=== PATIENT | male | born 1990 | race African-American/Black ===

== ENCOUNTER 2017-09-07 18:07 | Inpatient (IN) | payer OTHER ==
--- NOTE | 2017-09-07 18:32 | PDOC ---
History of Present Illness - General History Source: Patient Exam Limitations: No Limitations - History of Present Illness Initial Comments: 09/07/17 18:33 The patient is a 27 year old male who denies any significant past medical history who presents to the ED complaining of several days of urinary frequency and decreased appetite. The patient states he urinates approximately every hour and soon after drinking. He endorses recent weight gain approximately 5-7 months ago. He reports family history of diabetes in his aunt and grandfather. No fever or chills. No abdominal pain, vomiting, or diarrhea. No hematuria or dysuria. <Juanita Woods - Last Filed: 09/07/17 18:33> <Cee Ramesh - Last Filed: 09/09/17 09:43> - General Chief Complaint: Urinary Problem Stated Complaint: URINATING FREQUENTLY Time Seen by Provider: 09/07/17 18:25 Past History <Juanita Woods - Last Filed: 09/07/17 18:33> <Cee Ramesh - Last Filed: 09/09/17 09:43> - Past Medical History Allergies/Adverse Reactions: Allergies Allergy/AdvReac Type Severity Reaction Status Date / Time No Known Allergies Allergy Verified 09/07/17 18:16 Home Medications: Ambulatory Orders NK [No Known Home Medication] 09/07/17 Review of Systems - Review of Systems Able to Perform ROS?: Yes Comments:: 09/07/17 18:36 GENERAL/CONSTITUTIONAL: +Decreased appetite. No fever or chills. HEAD, EYES, EARS, NOSE AND THROAT: No change in vision. No ear pain or discharge. No sore throat. CARDIOVASCULAR: No chest pain or shortness of breath. RESPIRATORY: No cough, wheezing, or hemoptysis. GASTROINTESTINAL: No nausea, vomiting, diarrhea or constipation. GENITOURINARY: +Frequency of urination. +Dysuria or hematuria. MUSCULOSKELETAL: No joint or muscle swelling or pain. No neck or back pain. SKIN: No rash NEUROLOGIC: No headache, vertigo, loss of consciousness, or change in strength/ sensation. ENDOCRINE: No increased thirst. No abnormal weight change. HEMATOLOGIC/LYMPHATIC: No anemia, easy bleeding, or history of blood clots. ALLERGIC/IMMUNOLOGIC: No hives or skin allergy. <Juanita Woods - Last Filed: 09/07/17 18:33> *Physical Exam - Physical Exam Comments: GENERAL: Awake, alert, and fully oriented, in no acute distress. Morbidly obese. HEAD: No signs of trauma EYES: PERRLA, EOMI, sclera anicteric, conjunctiva clear ENT: Auricles normal inspection, hearing grossly normal, nares patent, oropharynx clear without exudates. Moist mucosa NECK: Normal ROM, supple, no lymphadenopathy, JVD, or masses LUNGS: Breath sounds equal, clear to auscultation bilaterally. No wheezes, and no crackles HEART: Regular rate and rhythm, normal S1 and S2, no murmurs, rubs or gallops ABDOMEN: Soft, nontender, normoactive bowel sounds. No guarding, no rebound. No masses EXTREMITIES: Normal range of motion, no edema. No clubbing or cyanosis. No cords, erythema, or tenderness NEUROLOGICAL: Cranial nerves II through XII grossly intact. Normal speech, normal gait SKIN: Warm, Dry, normal turgor, no rashes or lesions noted. <Cee Ramesh - Last Filed: 09/09/17 09:43> ED Treatment Course - LABORATORY CBC & Chemistry Diagram: 09/08/17 06:15 09/09/17 07:20 <Cee Ramesh - Last Filed: 09/09/17 09:43> Medical Decision Making - Medical Decision Making 09/07/17 18:37 BGM is over range. Will obtain labs to further evaluate for new onset diabetes. 09/07/17 19:[address] Hassan at 7pm shift change. Pt recently evaluated, labs pending, written for IV fluids. <Cee Ramesh - Last Filed: 09/09/17 09:43> *DC/Admit/Observation/Transfer - Attestations Scribe Attestion: 09/07/17 18:37 Documentation prepared by Juanita Woods, acting as medical equipment repairer for Cee Ramesh MD. <Juanita Woods - Last Filed: 09/07/17 18:33> <Cee Ramesh - Last Filed: 09/09/17 09:43> Diagnosis at time of Disposition: Diabetes mellitus, new onset, Hyperglycemia - Discharge Dispostion Condition at time of disposition: Good
[2017-09-07] MEDS ORDERED: HEMOQUE TEST 1 EACH EACH ONE ×2 (18:33→20:51)
[2017-09-07 18:35] LABS: PH,URINE 5.5 (4.5-8); URINE APPEARANCE Clear; URINE BILIRUBIN Negative (NEGATIVE); URINE GLUCOSE (UA) 2+ (NEGATIVE); URINE KETONE Negative (NEGATIVE); URINE NITRITE Negative (NEGATIVE); URINE PROTEIN Negative (NEGATIVE); URINE UROBILINOGEN 0.2 (0.2-1.0)
[2017-09-07 18:37] LABS: URINE BLOOD Trace-lysed (NEGATIVE); URINE COLOR YELLOW
[2017-09-07] MEDS ORDERED: SODIUM CHLORIDE 2,000 ML IV STA (18:38)
[2017-09-07 19:08] LABS: BASO % 2.2 % (0-2.0); EOS % 1.6 % (0-4.5); HEMATOCRIT 49.2 % (35.4-49); HEMOGLOBIN 16.5 GM/dl (11.7-16.9); LYMPH % 35.4 % (8-40); MCH 29.6 pg (25.7-33.7); MCHC 33.6 g/dl (32.0-35.9); MEAN CELL VOLUME 88.1 fl (80-96); MEAN PLT VOLUME 10.1 fl (7.5-11.1); MONO % 6.9 % (3.8-10.2); NEUT % 53.9 % (42.8-82.8); PLATELET COUNT 220 K/MM3 (134-434); RBC 5.59 M/mm3 (4.00-5.60); RDW 12.8 % (11.9-15.9); WHITE BLOOD COUNT 5.9 K/mm3 (4.0-10.8)
--- NOTE | 2017-09-07 19:14 | PDOC ---
History of Present Illness - General Chief Complaint: Urinary Problem Stated Complaint: URINATING FREQUENTLY Time Seen by Provider: 09/07/17 18:25 History Source: Patient Exam Limitations: No Limitations Past History - Past Medical History Allergies/Adverse Reactions: Allergies Allergy/AdvReac Type Severity Reaction Status Date / Time No Known Allergies Allergy Verified 09/07/17 18:16 Home Medications: Ambulatory Orders NK [No Known Home Medication] 09/07/17 COPD: No - Suicide/Smoking/Psychosocial Hx Smoking History: Never smoked Hx Alcohol Use: Yes (OCCASIONAL) Drug/Substance Use Hx: No Substance Use Type: None *Physical Exam - Vital Signs Last Vital Signs Temp Pulse Resp BP Pulse Ox 98.3 F 84 18 150/95 95 09/07/17 18:12 09/07/17 18:12 09/07/17 18:12 09/07/17 18:12 09/07/17 18:12 ED Treatment Course - LABORATORY CBC & Chemistry Diagram: 09/07/17 18:55 09/07/17 18:55 - ADDITIONAL ORDERS Additional order review: Laboratory Results 09/07/17 18:30 Urine Color Yellow Urine Appearance Clear Urine pH 5.5 Ur Specific [place] <= 1.005 Urine Protein Negative Urine Glucose (UA) 2+ H Urine Ketones Negative Urine Blood Trace-lysed H Urine Nitrite Negative Urine Bilirubin Negative Urine Urobilinogen 0.2 Ur Leukocyte Esterase Negative 09/07/17 18:55 RBC 5.59 MCV 88.1 MCHC 33.6 RDW 12.8 MPV 10.1 Neutrophils % 53.9 Lymphocytes % 35.4 Monocytes % 6.9 Eosinophils % 1.6 Basophils % 2.2 H *DC/Admit/Observation/Transfer Diagnosis at time of Disposition: Diabetes mellitus, new onset - Discharge Dispostion Condition at time of disposition: Good - Referrals - Patient Instructions - Post Discharge Activity
--- NOTE | 2017-09-07 19:16 | PDOC ---
*Physical Exam - Vital Signs Last Vital Signs Temp Pulse Resp BP Pulse Ox 98.3 F 84 18 150/95 95 09/07/17 18:12 09/07/17 18:12 09/07/17 18:12 09/07/17 18:12 09/07/17 18:12 ED Treatment Course - LABORATORY CBC & Chemistry Diagram: 09/07/17 18:55 09/07/17 21:05 - ADDITIONAL ORDERS Additional order review: Laboratory Results 09/07/17 18:30 Urine Color Yellow Urine Appearance Clear Urine pH 5.5 Ur Specific [place] <= 1.005 Urine Protein Negative Urine Glucose (UA) 2+ H Urine Ketones Negative Urine Blood Trace-lysed H Urine Nitrite Negative Urine Bilirubin Negative Urine Urobilinogen 0.2 Ur Leukocyte Esterase Negative 09/07/17 18:55 RBC 5.59 MCV 88.1 MCHC 33.6 RDW 12.8 MPV 10.1 Neutrophils % 53.9 Lymphocytes % 35.4 Monocytes % 6.9 Eosinophils % 1.6 Basophils % 2.2 H Progress Note - Progress Note Progress Note: Care of this patient was transferred to mi from Dr. Ramesh at 1900 hrs. Patient comes in complaining of urinary frequency but no other complaints of dysuria or hematuria. Patient was also complaining of feeling thirsty, weak and not well. Patient's workup is pending suspect new onset diabetes as his fingerstick blood sugar read high on the glucometer. 20:00 Patient's glucose is 706 his potassium is 4.4 so will begin IV insulin. Patient given 0.1 unit regular insulin per KG bolus and then drip started at 0.1 per KG per hour. There is no anion gap and the rest of his chemistries are unremarkable with the exception of his liver enzymes which are mildly to moderately elevated. Patient's potassium is 125 but when corrected for the elevated glucose it is not within the normal range. Patient will be admitted to a telemetry bed *DC/Admit/Observation/Transfer Diagnosis at time of Disposition: Diabetes mellitus, new onset, Hyperglycemia - Discharge Dispostion Condition at time of disposition: Good Admit: Yes - Referrals - Patient Instructions - Post Discharge Activity
[2017-09-07 19:30] LABS: EPI CELLS 0-1 /HPF; URINE WBC 0-1 (0-2)
[2017-09-07 19:32] LABS: ACETONE SERUM NEGATIVE (NEGATIVE)
[2017-09-07 19:38] LABS: BLOOD UREA NITROGEN 11 mg/dl (7-18)
[2017-09-07 19:43] LABS: CHLORIDE 90 mmol/L (98-107); POTASSIUM 4.4 mmol/L (3.5-5.1); SODIUM 125 mmol/L (136-145)
[2017-09-07 19:44] LABS: ALBUMIN 4.2 g/dl (3.5-5.0); ALK PHOS 102 U/L (32-92); ANION GAP 11 (8-16); BILIRUBIN,TOTAL 1.1 mg/dl (0.2-1.0); CALCIUM 9.5 mg/dl (8.4-10.2); CO2 24 mmol/L (22-28); LIPASE 43 U/L (22-51); SGOT/AST 131 U/L (10-42); SGPT/ALT 153 U/L (10-40); TOT PROT 7.7 g/dl (6.4-8.3)
[2017-09-07 19:47] LABS: GLUCOSE,RANDOM 706 mg/dl (74-106)
[2017-09-07] MEDS ORDERED: INSULIN REGULAR HUMAN 100 UNITS/ML *VIAL IVPUSH ONE (19:53)
[2017-09-07] MEDS ORDERED: INSULIN (NOVOLOG) ASPART 100 UNITS/ML 10ML VIAL ONE (19:55)
[2017-09-07] MEDS ORDERED: INSULIN REGULAR HUMAN 100 UNITS/ML *VIAL ONE (19:55)
[2017-09-07] MEDS ORDERED: INSULIN REGULAR 100 UNITS in SODIUM CHLORIDE 99 ML IVPB SCH (20:00)
[2017-09-07 21:32] LABS: BLOOD UREA NITROGEN 10 mg/dl (7-18); CREATININE 0.9 mg/dl (0.6-1.3); GLUCOSE,RANDOM 374 mg/dl (74-106)
[2017-09-07 21:33] LABS: ANION GAP 9 (8-16); CALCIUM 9.1 mg/dl (8.4-10.2); CHLORIDE 101 mmol/L (98-107); CO2 22 mmol/L (22-28); POTASSIUM 3.6 mmol/L (3.5-5.1); SODIUM 132 mmol/L (136-145)
[2017-09-07 22:42] VITALS: BMI 44.0
[2017-09-07] MEDS: SODIUM CHLORIDE 0.9%/KCL 20 MEQ/1,000 ML INFUS.BAG IV SCH (22:44)
[2017-09-07] MEDS ORDERED: POTASSIUM CHLORIDE TABS 20 MEQ TABLET.ER (FP) PO ONE (22:48)
--- NOTE | 2017-09-07 22:49 | HP ---
CHIEF COMPLAINT: urinary frequency PCP: none HISTORY OF PRESENT ILLNESS: This is a 27 year old male with no past medical history who presented with urinary frequency and decreased appetite x 2 weeks. He states that his grandmother periodically checks his sugar and it has been fine but she has not checked it during this illness. In the ED he was noted to have elevated sugar on meter; labs revealed glucose 706. Pt reports slow steady weight loss over past 11 months, weighed 376 last October ER course was notable for: (1) Glucose 706, given 16u novolog and started on drip (2) Potasium initially 4.4 (3) Sodium 125, corrects to 135 to 140 Recent Travel: pt denies PAST MEDICAL HISTORY: pt denies PAST SURGICAL HISTORY: pt denies Social History: Smoking: pt denies Alcohol: pt denies Drugs: pt denies Family History: Parents with no medical problems Maternal GM and GF with DM brother with renal disease dx at age 6, s/p kidney transplant x 2 Allergies No Known Allergies Allergy (Verified 09/07/17 18:16) HOME MEDICATIONS: 3 Medication Instructions Recorded NK [No Known Home Medication] 09/07/17 REVIEW OF SYSTEMS CONSTITUTIONAL: Absent: fever, chills, diaphoresis, generalized weakness, malaise, loss of appetite, weight change HEENT: Absent: rhinorrhea, nasal congestion, throat pain, throat swelling, difficulty swallowing, mouth swelling, ear pain, eye pain, visual changes CARDIOVASCULAR: Absent: chest pain, syncope, palpitations, irregular heart rate, lightheadedness , peripheral edema RESPIRATORY: Absent: cough, shortness of breath, dyspnea with exertion, orthopnea, wheezing, stridor, hemoptysis GASTROINTESTINAL: Present: Decreased po appetite Absent: abdominal pain, abdominal distension, nausea, vomiting, diarrhea, constipation, melena, hematochezia GENITOURINARY: Present: frequency Absent: dysuria, urgency, hesitancy, hematuria, flank pain, genital pain MUSCULOSKELETAL: Absent: myalgia, arthralgia, joint swelling, back pain, neck pain SKIN: Absent: rash, itching, pallor HEMATOLOGIC/IMMUNOLOGIC: Absent: easy bleeding, easy bruising, lymphadenopathy, frequent infections ENDOCRINE: Absent: unexplained weight gain, unexplained weight loss, heat intolerance, cold intolerance NEUROLOGIC: Absent: headache, focal weakness or paresthesias, dizziness, unsteady gait, seizure, mental status changes, bladder or bowel incontinence PSYCHIATRIC: Absent: anxiety, depression, suicidal or homicidal ideation, hallucinations. PHYSICAL EXAMINATION Vital Signs - 24 hr 3 09/07/17 09/07/17 18:12 21:00 Temperature 98.3 F Pulse Rate 84 Pulse Rate [ 82 Right Radial] Respiratory 18 18 Rate Blood Pressure 150/95 Blood Pressure 131/61 [Right Arm] O2 Sat by Pulse 95 96 Oximetry (%) GENERAL: Awake, alert, and fully oriented, in no acute distress. HEAD: Normal with no signs of trauma. EYES: Pupils equal, round and reactive to light, extraocular movements intact, sclera anicteric, conjunctiva clear. No lid lag. EARS, NOSE, THROAT: Ears normal, nares patent, oropharynx clear without exudates. Moist mucous membranes. NECK: Normal range of motion, supple without lymphadenopathy, JVD, or masses. LUNGS: Breath sounds equal, clear to auscultation bilaterally. No wheezes, and no crackles. No accessory muscle use. HEART: Regular rate and rhythm, normal S1 and S2 without murmur, rub or gallop. ABDOMEN: Obese, Soft, nontender, not distended, normoactive bowel sounds, no guarding, no rebound, no masses. No hepatomegaly or splenomegaly. MUSCULOSKELETAL: Normal range of motion at all joints. No bony deformities or tenderness. No CVA tenderness. UPPER EXTREMITIES: 2+ pulses, warm, well-perfused. No cyanosis. No clubbing. No peripheral edema. LOWER EXTREMITIES: 2+ pulses, warm, well-perfused. No calf tenderness. No peripheral edema. NEUROLOGICAL: Cranial nerves II-XII intact. Normal speech. Normal gait. PSYCHIATRIC: Cooperative. Good eye contact. Appropriate mood and affect. SKIN: Warm, dry, normal turgor, no rashes or lesions noted, normal capillary refill. Laboratory Results - last 24 hr 3 09/07/17 09/07/17 09/07/17 18:30 18:55 18:55 WBC 5.9 RBC 5.59 Hgb 16.5 Hct 49.2 H MCV 88.1 MCH 29.6 MCHC 33.6 RDW 12.8 Plt Count 220 MPV 10.1 Neutrophils % 53.9 Lymphocytes % 35.4 Monocytes % 6.9 Eosinophils % 1.6 Basophils % 2.2 H Sodium 125 L Potassium 4.4 Chloride 90 L Carbon Dioxide 24 Anion Gap 11 BUN 11 Creatinine 1.0 Creat Clearance w eGFR > 60 Random Glucose 706 H* Lactic Acid Calcium 9.5 Total Bilirubin 1.1 H AST 131 H ALT 153 H Alkaline Phosphatase 102 H Total Protein 7.7 Albumin 4.2 Lipase 43 Urine Color Yellow Urine Appearance Clear Urine pH 5.5 Ur Specific [place] <= 1.005 Urine Protein Negative Urine Glucose (UA) 2+ H Urine Ketones Negative Urine Blood Trace-lysed H Urine Nitrite Negative Urine Bilirubin Negative Urine Urobilinogen 0.2 Ur Leukocyte Esterase Negative Urine RBC 3-5 Urine WBC 0-1 Ur Epithelial Cells 0-1 Acetone, Qual Negative HIV 1&2 Antibody Screen HIV P24 Antigen 3 09/07/17 09/07/17 09/07/17 18:55 19:04 21:05 WBC RBC Hgb Hct MCV MCH MCHC RDW Plt Count MPV Neutrophils % Lymphocytes % Monocytes % Eosinophils % Basophils % Sodium 132 L Potassium 3.6 Chloride 101 D Carbon Dioxide 22 Anion Gap 9 BUN 10 Creatinine 0.9 Creat Clearance w eGFR Random Glucose 374 H* D Lactic Acid 1.7 Calcium 9.1 Total Bilirubin AST ALT Alkaline Phosphatase Total Protein Albumin Lipase Urine Color Urine Appearance Urine pH Ur Specific [place] Urine Protein Urine Glucose (UA) Urine Ketones Urine Blood Urine Nitrite Urine Bilirubin Urine Urobilinogen Ur Leukocyte Esterase Urine RBC Urine WBC Ur Epithelial Cells Acetone, Qual HIV 1&2 Antibody Screen Negative HIV P24 Antigen Negative ASSESSMENT/PLAN: 27yM with no PMH presented to the ED with urinary frequency, decreased appetite and generalized malaise. New onset DM - was given insulin drip in ED. ED discontinued when BGM less than 400. - start long acting insulin, levemir 28units HS; - BGM AC/HS with novolog sliding scale - A1C in am - endocrine consult DVT PPX - low risk, expected LOS <48h Dispo: Pt currently requires further observation for management of his emergent condition. Visit type - Emergency Visit Emergency Visit: Yes ED Registration Date: 09/07/17 Care time: The patient presented to the Emergency Department on the above date and was hospitalized for further evaluation of their emergent condition. - New Patient This patient is new to me today: Yes Date on this admission: 09/07/17 - Critical Care Critical Care patient: No
[2017-09-07] MEDS ORDERED: INSULIN DETEMIR 100 UNITS/ML MDV SQ ONE (23:00)
[2017-09-07] MEDS ORDERED: INSULIN (NOVOLOG) ASPART 100 UNITS/ML 10ML VIAL SQ ONE (23:30)
[2017-09-08 01:38] LABS: ANION GAP 13 (8-16); BLOOD UREA NITROGEN 9 mg/dL (7-18); CALCIUM 8.4 mg/dL (8.5-10.1); CHLORIDE 100 mmol/L (98-107); CO2 24 mmol/L (21-32); CREATININE 0.9 mg/dL (0.7-1.3); SODIUM 137 mmol/L (136-145)
[2017-09-08 01:39] LABS: POTASSIUM 4.2 mmol/L (3.5-5.1)
[2017-09-08 01:40] LABS: GLUCOSE,RANDOM 368 mg/dL (74-106)
[2017-09-08] MEDS ORDERED: IBUPROFEN 600 MG TABLET (FP) PO ONE (01:46)
[2017-09-08] MEDS: INSULIN SLIDING SCALE (NOVOLOG) 1 VIAL SQ SCH ×4 (07:15→22:48)
[2017-09-08 09:07] LABS: BASO % 0.3 % (0-2.0); EOS % 1.2 % (0-4.5); HEMATOCRIT 35.9 % (35.4-49); HEMOGLOBIN 11.9 GM/dl (11.7-16.9); LYMPH % 25.2 % (8-40); MCH 28.5 pg (25.7-33.7); MEAN CELL VOLUME 86.2 fl (80-96); MEAN PLT VOLUME 9.8 fl (7.5-11.1); MONO % 6.1 % (3.8-10.2); NEUT % 67.2 % (42.8-82.8); PLATELET COUNT 154 K/MM3 (134-434); RBC 4.17 M/mm3 (4.00-5.60); RDW 12.5 % (11.9-15.9); WHITE BLOOD COUNT 6.6 K/mm3 (4.0-10.8)
--- NOTE | 2017-09-08 09:39 | PN ---
Physical Exam: SUBJECTIVE: Patient seen and examined at bedside. Feels better than yesterday, not urinating as frequently and not as weak. OBJECTIVE: Vital Signs Period Temp Pulse Resp BP Sys/Chase Pulse Ox Last 24 Hr 98.1 F-98.3 F 71-84 18-19 131-152/61-95 95-97 GENERAL: The patient is awake, alert, and fully oriented, in no acute distress. LUNGS: Breath sounds equal, clear to auscultation bilaterally, no wheezes, no crackles, no accessory muscle use. HEART: Regular rate and rhythm, S1, S2 without murmur, rub or gallop. ABDOMEN: Soft, obese, nontender, nondistended EXTREMITIES: 2+ pulses, warm, well-perfused, no edema. NEUROLOGICAL: Cranial nerves II through XII grossly intact. Normal speech, moves all extremities freely SKIN: Warm, dry, normal turgor Laboratory Results - last 24 hr 09/07/17 09/07/17 09/07/17 18:30 18:55 18:55 WBC 5.9 RBC 5.59 Hgb 16.5 Hct 49.2 H MCV 88.1 MCH 29.6 MCHC 33.6 RDW 12.8 Plt Count 220 MPV 10.1 Neutrophils % 53.9 Lymphocytes % 35.4 Monocytes % 6.9 Eosinophils % 1.6 Basophils % 2.2 H Sodium 125 L Potassium 4.4 Chloride 90 L Carbon Dioxide 24 Anion Gap 11 BUN 11 Creatinine 1.0 Creat Clearance w eGFR > 60 POC Glucometer Random Glucose 706 H* Lactic Acid Calcium 9.5 Total Bilirubin 1.1 H AST 131 H ALT 153 H Alkaline Phosphatase 102 H Total Protein 7.7 Albumin 4.2 Lipase 43 Urine Color Yellow Urine Appearance Clear Urine pH 5.5 Ur Specific [place] <= 1.005 Urine Protein Negative Urine Glucose (UA) 2+ H Urine Ketones Negative Urine Blood Trace-lysed H Urine Nitrite Negative Urine Bilirubin Negative Urine Urobilinogen 0.2 Ur Leukocyte Esterase Negative Urine RBC 3-5 Urine WBC 0-1 Ur Epithelial Cells 0-1 Acetone, Qual Negative HIV 1&2 Antibody Screen HIV P24 Antigen 09/07/17 09/07/17 09/07/17 18:55 19:04 21:05 WBC RBC Hgb Hct MCV MCH MCHC RDW Plt Count MPV Neutrophils % Lymphocytes % Monocytes % Eosinophils % Basophils % Sodium 132 L Potassium 3.6 Chloride 101 D Carbon Dioxide 22 Anion Gap 9 BUN 10 Creatinine 0.9 Creat Clearance w eGFR POC Glucometer Random Glucose 374 H* D Lactic Acid 1.7 Calcium 9.1 Total Bilirubin AST ALT Alkaline Phosphatase Total Protein Albumin Lipase Urine Color Urine Appearance Urine pH Ur Specific [place] Urine Protein Urine Glucose (UA) Urine Ketones Urine Blood Urine Nitrite Urine Bilirubin Urine Urobilinogen Ur Leukocyte Esterase Urine RBC Urine WBC Ur Epithelial Cells Acetone, Qual HIV 1&2 Antibody Screen Negative HIV P24 Antigen Negative 09/07/17 09/08/17 09/08/17 23:01 00:01 06:15 WBC 6.6 RBC 4.17 D Hgb 11.9 D Hct 35.9 D MCV 86.2 MCH 28.5 MCHC 33.0 RDW 12.5 Plt Count 154 D MPV 9.8 Neutrophils % 67.2 D Lymphocytes % 25.2 D Monocytes % 6.1 Eosinophils % 1.2 Basophils % 0.3 Sodium 137 Potassium 4.2 Chloride 100 Carbon Dioxide 24 Anion Gap 13 BUN 9 Creatinine 0.9 Creat Clearance w eGFR POC Glucometer 318 Random Glucose 368 H* Lactic Acid Calcium 8.4 L Total Bilirubin AST ALT Alkaline Phosphatase Total Protein Albumin Lipase Urine Color Urine Appearance Urine pH Ur Specific [place] Urine Protein Urine Glucose (UA) Urine Ketones Urine Blood Urine Nitrite Urine Bilirubin Urine Urobilinogen Ur Leukocyte Esterase Urine RBC Urine WBC Ur Epithelial Cells Acetone, Qual HIV 1&2 Antibody Screen HIV P24 Antigen 09/08/17 07:09 WBC RBC Hgb Hct MCV MCH MCHC RDW Plt Count MPV Neutrophils % Lymphocytes % Monocytes % Eosinophils % Basophils % Sodium Potassium Chloride Carbon Dioxide Anion Gap BUN Creatinine Creat Clearance w eGFR POC Glucometer 297 Random Glucose Lactic Acid Calcium Total Bilirubin AST ALT Alkaline Phosphatase Total Protein Albumin Lipase Urine Color Urine Appearance Urine pH Ur Specific [place] Urine Protein Urine Glucose (UA) Urine Ketones Urine Blood Urine Nitrite Urine Bilirubin Urine Urobilinogen Ur Leukocyte Esterase Urine RBC Urine WBC Ur Epithelial Cells Acetone, Qual HIV 1&2 Antibody Screen HIV P24 Antigen Active Medications Generic Name Dose Route Start Last Admin Trade Name Freq PRN Reason Stop Dose Admin Potassium Chloride/Sodium Chloride 20 meq in 1,000 mls @ 125 mls/hr 09/07/17 22:00 09/07/17 22:44 Ns+20 Meq Kcl - IV 125 mls/hr ASDIR SHERRY Administration Insulin Aspart 1 vial 09/08/17 22:00 Novolog Vial Sliding Scale - SQ HS [facility] Protocol Insulin Aspart 1 vial 09/08/17 07:00 09/08/17 07:15 Novolog Vial Sliding Scale - SQ 6 units TIDAC [facility] Administration Protocol Insulin Detemir 15 units 09/08/17 10:00 Levemir Vial SQ BID [facility] ASSESSMENT/PLAN: 27 year-old male with no past medical history admitted for newly diagnosed diabetes. Diabetes mellitus Hyperosmolar non-ketotic state --initial fingerstick 700, placed on insulin drip until glucose dropped below 400 --fingersticks today ~300, change Levemir to BID dosing --Novolog sliding scale coverage --A1C pending --endocrine consult pending DVT prophylaxis: subq heparin, oob, ambulation Dispo: Pt currently requires further observation for management of his emergent condition. Visit type - Emergency Visit Emergency Visit: Yes ED Registration Date: 09/07/17 Care time: The patient presented to the Emergency Department on the above date and was hospitalized for further evaluation of their emergent condition. - New Patient This patient is new to me today: Yes Date on this admission: 09/08/17 - Critical Care Critical Care patient: No
[2017-09-08 09:43] LABS: ALBUMIN 3.6 g/dl (3.5-5.0); ALK PHOS 85 U/L (32-92); ANION GAP 11 (8-16); BILIRUBIN,TOTAL 1.1 mg/dl (0.2-1.0); BLOOD UREA NITROGEN 9 mg/dl (7-18); CALCIUM 8.8 mg/dl (8.4-10.2); CHLORIDE 102 mmol/L (98-107); CO2 22 mmol/L (22-28); CREATININE 0.8 mg/dl (0.6-1.3); POTASSIUM 4.2 mmol/L (3.5-5.1); SGOT/AST 120 U/L (10-42); SGPT/ALT 132 U/L (10-40); SODIUM 135 mmol/L (136-145); TOT PROT 6.8 g/dl (6.4-8.3)
[2017-09-08 09:53] LABS: GLUCOSE,RANDOM 304 mg/dl (74-106)
[2017-09-08] MEDS: INSULIN DETEMIR 100 UNITS/ML MDV SQ SCH ×2 (09:54→22:48)
--- NOTE | 2017-09-08 13:20 | CONSULT ---
Consult Consult Specialty:: Endocrinology Referred by:: Mary Garcia Reason for Consultation:: New onset DM - History of Present Illness Chief Complaint: polyuria, polydipsia History of Present Illness: This is a 27 year old male with no significant past medical history who presents to the ED complaining of 2 weeks of urinary frequency and decreased appetite. The patient states he urinates approximately every hour and soon after drinking. Pt found to be hyperglycemic with blood sugar >700. Pt was treated with IV insulin with improvement in blood sugar and symptoms. Denies any visual symptoms. No paresthesia of feet. Blood checked by his grandmother about 6 months "normal" as per pt. Wt loss of around 10 lbs in last 2 weeks. He reports family history of diabetes in his aunt and grandfather. No fever or chills. No abdominal pain, vomiting, or diarrhea. No hematuria or dysuria. - History Source History Provided By: Patient, Medical Record - Alcohol/Substance Use Hx Alcohol Use: Yes (OCCASIONAL) - Smoking History Smoking history: Never smoked Home Medications - Allergies Allergies/Adverse Reactions: Allergies Allergy/AdvReac Type Severity Reaction Status Date / Time No Known Allergies Allergy Verified 09/07/17 18:16 - Home Medications Home Medications: Ambulatory Orders NK [No Known Home Medication] 09/07/17 Family Disease History - Family Disease History Family Disease History: Diabetes: Grandparent Review of Systems - Review of Systems Constitutional: reports: Malaise Eyes: reports: No Symptoms HENT: reports: No Symptoms Neck: reports: No Symptoms Cardiovascular: reports: No Symptoms Respiratory: reports: No Symptoms Gastrointestinal: reports: No Symptoms Genitourinary: reports: Other (Poyuria, Polydipsia, increased thirst) Breasts: reports: No Symptoms Reported Musculoskeletal: reports: No Symptoms Neurological: reports: No Symptoms Endocrine: reports: No Symptoms Physical Exam Vital Signs: Vital Signs Temperature 98.3 F 09/08/17 07:21 Pulse Rate 71 09/08/17 07:21 Respiratory Rate 19 09/08/17 07:21 Blood Pressure 146/79 09/08/17 07:21 O2 Sat by Pulse Oximetry (%) 97 09/08/17 07:21 Constitutional: Yes: Well Nourished Eyes: Yes: Conjunctiva Clear, EOM Intact HENT: Yes: Atraumatic, Normocephalic Neck: Yes: Supple, Trachea Midline Cardiovascular: Yes: Regular Rate and Rhythm Respiratory: Yes: Regular, CTA Bilaterally Gastrointestinal: Yes: Normal Bowel Sounds, Soft Breast(s): Yes: WNL Musculoskeletal: Yes: WNL Extremities: Yes: WNL Edema: No Neurological: Yes: Alert, Oriented Labs: CBC, BMP 09/08/17 06:15 09/08/17 06:15 Assessment/Plan AP; New onset DM with hyperglycemia Calculated [address] Osm 293 Diet exercise discussed, Diabetes education done Nutrition consult Levemir 15 units BID Novolog SS coverage PRINCESS Ab C peptide if possible as inpatient, if not as outpt. Teach pt to self monitor blood sugar and self inject Insulin Elevated LFTs: ? Fatty liver Consider GI consult Will add Metformin if the liver abnormality is fatty liver
[2017-09-08] MEDS: HEPARIN NA (PORCINE) 5,000 UNITS/ML 1ML VIAL SQ SCH ×2 (13:58→22:48)
[2017-09-08] MEDS: SODIUM CHLORIDE 0.9%/KCL 20 MEQ/1,000 ML INFUS.BAG IV SCH (22:48)
[2017-09-08] MEDS ORDERED: INSULIN (NOVOLOG) ASPART 100 UNITS/ML 10ML VIAL SQ ONE (23:02)
[2017-09-09] MEDS: INSULIN SLIDING SCALE (NOVOLOG) 1 VIAL SQ SCH ×4 (06:50→21:26)
[2017-09-09] MEDS: HEPARIN NA (PORCINE) 5,000 UNITS/ML 1ML VIAL SQ SCH ×3 (06:51→21:26)
--- NOTE | 2017-09-09 07:40 | PN ---
Physical Exam: SUBJECTIVE: Patient seen and examined, reports feeling well, denies any abdominal pain, tolerating diet. OBJECTIVE:27 year-old male with no past medical history admitted for newly diagnosed diabetes. Vital Signs Period Temp Pulse Resp BP Sys/Chase Pulse Ox Last 24 Hr 98 F-98.1 F 64-71 18-19 139-144/72-76 96-96 GENERAL: obese, awake, alert, and fully oriented, in no acute distress. HEAD: Normal with no signs of trauma. EYES: PERRL, extraocular movements intact, sclera anicteric, conjunctiva clear. No ptosis. ENT: Ears normal, nares patent, oropharynx clear without exudates, moist mucous membranes. NECK: Trachea midline, full range of motion, supple. LUNGS: Breath sounds equal, clear to auscultation bilaterally, no wheezes, no crackles, no accessory muscle use. HEART: Regular rate and rhythm, S1, S2 without murmur, rub or gallop. ABDOMEN: Soft, nontender, nondistended, normoactive bowel sounds, no guarding, no rebound, no hepatosplenomegaly, no masses. EXTREMITIES: 2+ pulses, warm, well-perfused, no edema. NEUROLOGICAL: Cranial nerves II through XII grossly intact. Normal speech, gait not observed. PSYCH: Normal mood, normal affect. SKIN: Warm, dry, normal turgor, no rashes or lesions noted Laboratory Results - last 24 hr 09/08/17 09/08/17 09/08/17 06:15 06:15 06:15 WBC 6.6 RBC 4.17 D Hgb 11.9 D Hct 35.9 D MCV 86.2 MCH 28.5 MCHC 33.0 RDW 12.5 Plt Count 154 D MPV 9.8 Neutrophils % 67.2 D Lymphocytes % 25.2 D Monocytes % 6.1 Eosinophils % 1.2 Basophils % 0.3 Sodium 135 L Potassium 4.2 Chloride 102 Carbon Dioxide 22 Anion Gap 11 BUN 9 Creatinine 0.8 Creat Clearance w eGFR > 60 POC Glucometer Random Glucose 304 H* Hemoglobin A1c % 11.2 H Calcium 8.8 Total Bilirubin 1.1 H AST 120 H ALT 132 H Alkaline Phosphatase 85 Total Protein 6.8 Albumin 3.6 09/08/17 09/08/17 09/08/17 11:11 16:25 22:44 WBC RBC Hgb Hct MCV MCH MCHC RDW Plt Count MPV Neutrophils % Lymphocytes % Monocytes % Eosinophils % Basophils % Sodium Potassium Chloride Carbon Dioxide Anion Gap BUN Creatinine Creat Clearance w eGFR POC Glucometer 301 314 398 Random Glucose Hemoglobin A1c % Calcium Total Bilirubin AST ALT Alkaline Phosphatase Total Protein Albumin 09/09/17 06:12 WBC RBC Hgb Hct MCV MCH MCHC RDW Plt Count MPV Neutrophils % Lymphocytes % Monocytes % Eosinophils % Basophils % Sodium Potassium Chloride Carbon Dioxide Anion Gap BUN Creatinine Creat Clearance w eGFR POC Glucometer 307 Random Glucose Hemoglobin A1c % Calcium Total Bilirubin AST ALT Alkaline Phosphatase Total Protein Albumin Laboratory Tests 09/09/17 07:20 Triglycerides 730 H Cholesterol 206 Total LDL Cholesterol 31 HDL Cholesterol 29 Active Medications Generic Name Dose Route Start Last Admin Trade Name Lucila PRN Reason Stop Dose Admin Heparin Sodium (Porcine) 5,000 unit 09/08/17 14:00 09/09/17 06:51 Heparin - SQ 5,000 unit TID SHERRY Administration Potassium Chloride/Sodium Chloride 20 meq in 1,000 mls @ 125 mls/hr 09/07/17 22:00 09/08/17 22:48 Ns+20 Meq Kcl - IV 125 mls/hr ASDIR SHERRY Administration Insulin Aspart 1 vial 09/08/17 22:00 09/08/17 22:48 Novolog Vial Sliding Scale - SQ 8 units HS SHERRY Administration Protocol Insulin Aspart 1 vial 09/08/17 16:30 09/09/17 06:50 Novolog Vial Sliding Scale - SQ 10 units TIDAC SHERRY Administration Protocol Insulin Detemir 15 units 09/08/17 10:00 09/08/17 22:48 Levemir Vial SQ 15 units BID SHERRY Administration Microbiology 09/07/17 18:30 Urine - Urine Clean Catch Urine Culture - Final NO GROWTH OBTAINED ASSESSMENT/PLAN: 1) endo IDDM - elevated fingersticks noted, increase levermir to 20 units BID, continue novolog sliding scale - hgb a1c, 11.2, pt will require home insulin - endocrine consulted and following 2) GI transanimitis -elevate ast/alt, pending hepatitis panel - ultrasound of abd hepatostasis noted, likely fatty liver, lipid panel noted, elevated triglycerides - dietary consult ordered - GI, Dr Bowers consulted and following DVT prophylaxis: subq heparin, oob, ambulation Dispo: Pt requires inpatient admission Visit type - Emergency Visit Emergency Visit: Yes ED Registration Date: 09/09/17 Care time: The patient presented to the Emergency Department on the above date and was hospitalized for further evaluation of their emergent condition. - New Patient This patient is new to me today: Yes Date on this admission: 09/09/17 - Critical Care Critical Care patient: No
[2017-09-09 09:17] LABS: ALBUMIN 3.5 g/dl (3.5-5.0); ALK PHOS 79 U/L (32-92); ANION GAP 10 (8-16); BILIRUBIN,TOTAL 1.6 mg/dl (0.2-1.0); BLOOD UREA NITROGEN 6 mg/dl (7-18); CHLORIDE 99 mmol/L (98-107); CO2 23 mmol/L (22-28); CREATININE 0.8 mg/dl (0.6-1.3); GLUCOSE,RANDOM 291 mg/dl (74-106); MAGNESIUM 1.5 mg/dL (1.8-2.4); PHOSPHOROUS 3.2 mg/dl (2.5-4.6); POTASSIUM 4.2 mmol/L (3.5-5.1); SGOT/AST 146 U/L (10-42); SGPT/ALT 138 U/L (10-40); SODIUM 132 mmol/L (136-145); TOT PROT 6.7 g/dl (6.4-8.3)
[2017-09-09 09:23] LABS: CHOLESTEROL 206 mg/dl; HDL CHOLESTEROL 29 mg/dl (29-89)
[2017-09-09 09:25] LABS: LDL CHOLESTEROL (ONLY DFH) 31 mg/dl; TRIGLYCERIDES 730 mg/dl (35-160)
[2017-09-09] MEDS: INSULIN DETEMIR 100 UNITS/ML MDV SQ SCH (09:37)
[2017-09-09] MEDS ORDERED: MAGNESIUM SULF 50% (8.12 MEQ/2 ML-1 GM VIAL) IVPB ONE ×2 (09:41→10:30)
[2017-09-09 09:57] LABS: INR 1.07 (0.82-1.09)
--- NOTE | 2017-09-09 10:37 | PN ---
Progress Note (short form) - Note Progress Note: Patient seen and chart/labs reviewed. Consult dictated. Patient with likely fatty liver/steatohepatitis as cause of elevated LFTs. Less likely- chronic viral hepatitis; would obtain viral hepatitis serologies to exclude. Encourage dietary changes, exercise and control of blood sugars/triglycerides Outpatient monitoring/followup of LFTs. Patient aware of above and instructed to followup as outpatient. Repeat LFTs in am.
[2017-09-09 10:54] LABS: BASO % 0.5 % (0-2.0); EOS % 1.5 % (0-4.5); HEMOGLOBIN 14.7 GM/dl (11.7-16.9); LYMPH % 37.1 % (8-40); MCH 28.5 pg (25.7-33.7); MCHC 32.8 g/dl (32.0-35.9); MEAN CELL VOLUME 87.1 fl (80-96); MEAN PLT VOLUME 10.6 fl (7.5-11.1); MONO % 7.2 % (3.8-10.2); NEUT % 53.7 % (42.8-82.8); PLATELET COUNT 196 K/MM3 (134-434); RBC 5.17 M/mm3 (4.00-5.60); RDW 12.6 % (11.9-15.9); WHITE BLOOD COUNT 5.2 K/mm3 (4.0-10.8)
--- NOTE | 2017-09-09 11:03 | CONS ---
DATE OF CONSULTATION: 09/09/2017 REASON FOR CONSULTATION: Asked to evaluate this 27-year-old gentleman with elevated liver chemistries. HISTORY OF PRESENT ILLNESS: The patient is a 27-year-old gentleman without significant past medical history admitted via the emergency room with several weeks of increased urinary frequency, diminished appetite and known obesity. He was noted to have a markedly elevated blood sugar, greater than 700, with a new diagnosis of diabetes mellitus. He was also noted on blood tests to have elevated serum transaminases with an AST of 146, ALT of 138, total bilirubin of 1.5 and an alkaline phosphatase of 79. He has no prior history of abnormal liver chemistry/hepatitis. The patient also had a white count of 5.9, hemoglobin of 16.5, hematocrit of 49.2 and a platelet count of 220. His hospital course has been notable for management of his markedly elevated blood sugars and a sonogram of the liver was obtained, showing an enlarged liver with fatty changes. The gallbladder was somewhat distended, but no gallstones were seen and there was no biliary ductal dilatation. The patient denies any prior history of hepatitis or jaundice. He does have multiple tattoos but believes all his needles used for the tattooing were sterile. He denies any prior history of IV drug use, needle sticks or exposure to people with known hepatitis. PHYSICAL EXAMINATION:General: The patient currently is seen resting in bed comfortably. HEENT: He has pink conjunctivae. No icterus. Lungs: Clear. Cardiac: Regular rate and rhythm. Abdomen: Soft, obese and nontender. The patient does not have palpable hepatosplenomegaly and denies any abdominal pain. ASSESSMENT: Patient with obesity, fatty liver on sonogram and elevated serum transaminases. Differential diagnosis includes steatohepatitis/fatty liver. Patient with diagnosis of diabetes and also noted to have a serum triglyceride level of 730 with a cholesterol of 206. Differential diagnosis might also include chronic active hepatitis from viral etiology. RECOMMENDATIONS: Would obtain viral hepatitis serologies. Would also manage both the blood sugars and triglyceride levels and encourage exercise and diet. Dietary consult has been recommended. Will follow expectantly as an outpatient with recommendations to follow. Thank you. MAYA ERNST M.D. [id number]
[2017-09-09] MEDS ORDERED: INSULIN (NOVOLOG) ASPART 100 UNITS/ML 10ML VIAL ONE ×2 (12:07→16:26)
[2017-09-09] MEDS: metFORMIN HCL 500 MG TABLET (FP) PO SCH (16:28)
[2017-09-09] MEDS ORDERED: INSULIN DETEMIR 100 UNITS/ML MDV SQ SCH (22:00)
--- NOTE | 2017-09-10 02:51 | CONSULT ---
Consult Consult Specialty:: endocrine Referred by:: vini goldstein np Reason for Consultation:: dka/iddm new onset - History of Present Illness Chief Complaint: high blood sugars History of Present Illness: 27y male newly diagnosed with dm, recent history of weight loss 10 lbs,polyuria, polydipsia,no blurred vision,nausea and headache,found to have bs 706 by fs, grandmother who is diabetic checked his sugar found to be alarming admitted with dehydration and hyperglyecemia,improved with insulin therapy - Alcohol/Substance Use Hx Alcohol Use: Yes (OCCASIONAL) - Smoking History Smoking history: Never smoked Home Medications - Allergies Allergies/Adverse Reactions: Allergies Allergy/AdvReac Type Severity Reaction Status Date / Time No Known Allergies Allergy Verified 09/07/17 18:16 - Home Medications Home Medications: Ambulatory Orders NK [No Known Home Medication] 09/07/17 Family Disease History - Family Disease History Family Disease History: Diabetes: Grandparent Review of Systems - Review of Systems Constitutional: reports: Lethargy, Unintentional Wgt. Loss, Weakness Eyes: reports: No Symptoms HENT: reports: No Symptoms Neck: reports: No Symptoms Cardiovascular: reports: No Symptoms Respiratory: reports: No Symptoms Gastrointestinal: reports: No Symptoms Genitourinary: reports: No Symptoms Breasts: reports: No Symptoms Reported Musculoskeletal: reports: No Symptoms Integumentary: reports: No Symptoms Neurological: reports: No Symptoms Physical Exam Vital Signs: Vital Signs Temperature 98.0 F 09/10/17 00:10 Pulse Rate 63 09/10/17 00:10 Respiratory Rate 18 09/10/17 00:10 Blood Pressure 105/55 09/10/17 00:10 O2 Sat by Pulse Oximetry (%) 96 09/10/17 00:10 Constitutional: Yes: Calm Eyes: Yes: EOM Intact HENT: Yes: Normocephalic Neck: Yes: Trachea Midline Cardiovascular: Yes: Regular Rate and Rhythm Respiratory: Yes: CTA Bilaterally Gastrointestinal: Yes: Normal Bowel Sounds ...Rectal Exam: Yes: Deferred Renal/: Yes: WNL Breast(s): Yes: WNL Musculoskeletal: Yes: WNL Extremities: Yes: WNL Edema: No Integumentary: Yes: WNL Neurological: Yes: Alert, Oriented Labs: CBC, BMP 09/09/17 07:20 09/09/17 07:20 Problem List - Problems (1) Diabetes mellitus, new onset Code(s): E11.9 - TYPE 2 DIABETES MELLITUS WITHOUT COMPLICATIONS (2) Hyperglycemia Code(s): R73.9 - HYPERGLYCEMIA, UNSPECIFIED Assessment/Plan Current Active Problems Diabetes mellitus, new onset (Acute) Hyperglycemia (Acute) Abnormal Lab Results 09/09/17 09/09/17 07:20 07:20 Sodium 132 L BUN 6 L D Random Glucose 291 H Magnesium 1.5 L Total Bilirubin 1.6 H D AST 146 H D ALT 138 H Triglycerides 730 H Laboratory Results - last 24 hr 09/07/17 09/08/17 09/09/17 18:37 21:07 06:12 WBC RBC Hgb Hct MCV MCH MCHC RDW Plt Count MPV Neutrophils % Lymphocytes % Monocytes % Eosinophils % Basophils % PT with INR INR Sodium Potassium Chloride Carbon Dioxide Anion Gap BUN Creatinine Creat Clearance w eGFR POC Glucometer > 400 432 307 Random Glucose Calcium Phosphorus Magnesium Total Bilirubin AST ALT Alkaline Phosphatase Total Protein Albumin Triglycerides Cholesterol Total LDL Cholesterol HDL Cholesterol Lipase 09/09/17 09/09/17 09/09/17 07:20 07:20 07:20 WBC 5.2 RBC 5.17 D Hgb 14.7 D Hct 45.0 D MCV 87.1 MCH 28.5 MCHC 32.8 RDW 12.6 Plt Count 196 D MPV 10.6 Neutrophils % 53.7 D Lymphocytes % 37.1 D Monocytes % 7.2 Eosinophils % 1.5 Basophils % 0.5 PT with INR INR Sodium 132 L Potassium 4.2 Chloride 99 Carbon Dioxide 23 Anion Gap 10 BUN 6 L D Creatinine 0.8 Creat Clearance w eGFR > 60 POC Glucometer Random Glucose 291 H Calcium 9.0 Phosphorus 3.2 Magnesium 1.5 L Total Bilirubin 1.6 H D AST 146 H D ALT 138 H Alkaline Phosphatase 79 Total Protein 6.7 Albumin 3.5 Triglycerides 730 H Cholesterol 206 Total LDL Cholesterol 31 HDL Cholesterol 29 Lipase 09/09/17 09/09/17 09/09/17 07:20 09:30 12:02 WBC RBC Hgb Hct MCV MCH MCHC RDW Plt Count MPV Neutrophils % Lymphocytes % Monocytes % Eosinophils % Basophils % PT with INR 12.0 INR 1.07 Sodium Potassium Chloride Carbon Dioxide Anion Gap BUN Creatinine Creat Clearance w eGFR POC Glucometer 292 Random Glucose Calcium Phosphorus Magnesium Total Bilirubin AST ALT Alkaline Phosphatase Total Protein Albumin Triglycerides Cholesterol Total LDL Cholesterol HDL Cholesterol Lipase 36 09/09/17 09/09/17 16:22 21:15 WBC RBC Hgb Hct MCV MCH MCHC RDW Plt Count MPV Neutrophils % Lymphocytes % Monocytes % Eosinophils % Basophils % PT with INR INR Sodium Potassium Chloride Carbon Dioxide Anion Gap BUN Creatinine Creat Clearance w eGFR POC Glucometer 252 360 Random Glucose Calcium Phosphorus Magnesium Total Bilirubin AST ALT Alkaline Phosphatase Total Protein Albumin Triglycerides Cholesterol Total LDL Cholesterol HDL Cholesterol Lipase dm new onset hyperglycemia morbid obesity insulin resistant plan: Current Medications Generic Name Dose Route Start Last Admin Trade Name Vicenteq PRN Reason Stop Dose Admin Heparin Sodium (Porcine) 5,000 unit 09/09/17 10:00 09/09/17 21:26 Heparin - SQ 5,000 unit BID SHERRY Administration Insulin Aspart 1 vial 09/08/17 22:00 09/09/17 21:26 Novolog Vial Sliding Scale - SQ 8 units HS SHERRY Administration Protocol Insulin Aspart 1 vial 09/08/17 16:30 09/09/17 16:28 Novolog Vial Sliding Scale - SQ 8 units TIDAC SHERRY Administration Protocol Insulin Detemir 27 units 09/10/17 07:00 Levemir Vial SQ BID@0700,2200 SHERRY Metformin HCl 500 mg 09/09/17 16:30 09/09/17 16:28 Glucophage - PO 500 mg BID@0700,1630 [facility] Administration diet nutrition follow up evaluation diabetic education and bgm testing chk hba1c as outpatient
[2017-09-10 06:10] LABS: HBSAG SCREEN Negative (Negative); HEP B CORE AB, TOT Negative (Negative)
[2017-09-10] MEDS: metFORMIN HCL 500 MG TABLET (FP) PO SCH (06:27)
[2017-09-10] MEDS: INSULIN SLIDING SCALE (NOVOLOG) 1 VIAL SQ SCH ×4 (06:28→21:47)
[2017-09-10] MEDS: INSULIN DETEMIR 100 UNITS/ML MDV SQ SCH ×2 (06:28→21:46)
--- NOTE | 2017-09-10 08:38 | DS ---
Physical Exam: SUBJECTIVE: Patient seen and examined, patient is tolerating regular diabetic diet, anxious to go home. OBJECTIVE:This is a 27 year old male with no past medical history who presented with urinary frequency and decreased appetite x 2 weeks. He states that his grandmother periodically checks his sugar and it has been fine but she has not checked it during this illness. In the ED he was noted to have elevated sugar on meter; labs revealed glucose 706. Pt reports slow steady weight loss over past 11 months, weighed 376 last October ER course was notable for: (1) Glucose 706, given 16u novolog and started on drip (2) Potasium initially 4.4 (3) Sodium 125, corrects to 135 to 140 Vital Signs Period Temp Pulse Resp BP Sys/Chase Pulse Ox Last 24 Hr 98 F-98.2 F 63-76 17-20 105-146/55-86 96-99 PHYSICAL EXAM GENERAL: obese, awake, alert, and fully oriented, in no acute distress. HEAD: Normal with no signs of trauma. EYES: PERRL, extraocular movements intact, sclera anicteric, conjunctiva clear. ENT: Ears normal, nares patent, oropharynx clear without exudates, moist mucous membranes. NECK: Trachea midline, full range of motion, supple. LUNGS: Breath sounds equal, clear to auscultation bilaterally, no wheezes, no crackles, no accessory muscle use. HEART: Regular rate and rhythm, S1, S2 without murmur, rub or gallop. ABDOMEN: Soft, nontender, nondistended, normoactive bowel sounds, no guarding, no rebound, no hepatosplenomegaly, no masses. EXTREMITIES: 2+ pulses, warm, well-perfused, no edema. NEUROLOGICAL: Cranial nerves II through XII grossly intact. Normal speech, gait not observed. PSYCH: Normal mood, normal affect. SKIN: Warm, dry, normal turgor, no rashes or lesions noted. LABS Laboratory Results - last 24 hr 09/07/17 09/08/17 09/09/17 18:37 21:07 07:20 WBC 5.2 RBC 5.17 D Hgb 14.7 D Hct 45.0 D MCV 87.1 MCH 28.5 MCHC 32.8 RDW 12.6 Plt Count 196 D MPV 10.6 Neutrophils % 53.7 D Lymphocytes % 37.1 D Monocytes % 7.2 Eosinophils % 1.5 Basophils % 0.5 PT with INR INR Sodium Potassium Chloride Carbon Dioxide Anion Gap BUN Creatinine Creat Clearance w eGFR POC Glucometer > 400 432 Random Glucose Calcium Phosphorus Magnesium Total Bilirubin AST ALT Alkaline Phosphatase Total Protein Albumin Triglycerides Cholesterol Total LDL Cholesterol HDL Cholesterol Lipase Hepatitis A Ab Total Hep Bs Antigen Hep Bs Antibody Hep B Core Total Ab Hepatitis C Antibody 09/09/17 09/09/17 09/09/17 07:20 07:20 07:20 WBC RBC Hgb Hct MCV MCH MCHC RDW Plt Count MPV Neutrophils % Lymphocytes % Monocytes % Eosinophils % Basophils % PT with INR INR Sodium 132 L Potassium 4.2 Chloride 99 Carbon Dioxide 23 Anion Gap 10 BUN 6 L D Creatinine 0.8 Creat Clearance w eGFR > 60 POC Glucometer Random Glucose 291 H Calcium 9.0 Phosphorus 3.2 Magnesium 1.5 L Total Bilirubin 1.6 H D AST 146 H D ALT 138 H Alkaline Phosphatase 79 Total Protein 6.7 Albumin 3.5 Triglycerides 730 H Cholesterol 206 Total LDL Cholesterol 31 HDL Cholesterol 29 Lipase Hepatitis A Ab Total Negative Hep Bs Antigen Negative Hep Bs Antibody Non reactive Hep B Core Total Ab Negative Hepatitis C Antibody 0.1 09/09/17 09/09/17 09/09/17 07:20 09:30 12:02 WBC RBC Hgb Hct MCV MCH MCHC RDW Plt Count MPV Neutrophils % Lymphocytes % Monocytes % Eosinophils % Basophils % PT with INR 12.0 INR 1.07 Sodium Potassium Chloride Carbon Dioxide Anion Gap BUN Creatinine Creat Clearance w eGFR POC Glucometer 292 Random Glucose Calcium Phosphorus Magnesium Total Bilirubin AST ALT Alkaline Phosphatase Total Protein Albumin Triglycerides Cholesterol Total LDL Cholesterol HDL Cholesterol Lipase 36 Hepatitis A Ab Total Hep Bs Antigen Hep Bs Antibody Hep B Core Total Ab Hepatitis C Antibody 09/09/17 09/09/17 09/10/17 16:22 21:15 06:18 WBC RBC Hgb Hct MCV MCH MCHC RDW Plt Count MPV Neutrophils % Lymphocytes % Monocytes % Eosinophils % Basophils % PT with INR INR Sodium Potassium Chloride Carbon Dioxide Anion Gap BUN Creatinine Creat Clearance w eGFR POC Glucometer 252 360 278 Random Glucose Calcium Phosphorus Magnesium Total Bilirubin AST ALT Alkaline Phosphatase Total Protein Albumin Triglycerides Cholesterol Total LDL Cholesterol HDL Cholesterol Lipase Hepatitis A Ab Total Hep Bs Antigen Hep Bs Antibody Hep B Core Total Ab Hepatitis C Antibody Microbiology 09/07/17 18:30 Urine - Urine Clean Catch Urine Culture - Final NO GROWTH OBTAINED HOSPITAL COURSE: Patient was admitted from the emergency department for newly diagnosed, IDDM, patient was initially started on an insulin gtt for fingersticks of do IDDM - elevated fingersticks noted, increase levermir to 20 units BID, continue novolog sliding scale - hgb a1c, 11.2, pt will require home insulin - endocrine consulted and following 2) GI transanimitis -elevate ast/alt, pending hepatitis panel - ultrasound of abd hepatostasis noted, likely fatty liver, lipid panel noted, elevated triglycerides - dietary consult ordered - GI, Dr Bowers consulted and following Date of Admission:09/09/17 Date of Discharge: 09/10/17 Minutes to complete discharge: 45 Discharge Summary Reason For Visit: ONSET OF DIABETES Current Active Problems Diabetes mellitus, new onset (Acute) Hyperglycemia (Acute) Condition: Good - Instructions - Home Medications Comprehensive Discharge Medication List: Ambulatory Orders NK [No Known Home Medication] 09/07/17
[2017-09-10 09:20] LABS: ALBUMIN 3.9 g/dl (3.5-5.0); ALK PHOS 86 U/L (32-92); BILIRUBIN,TOTAL 1.4 mg/dl (0.2-1.0); SGOT/AST 246 U/L (10-42); SGPT/ALT 203 U/L (10-40); TOT PROT 7.6 g/dl (6.4-8.3)
[2017-09-10 09:29] LABS: BILIRUBIN,DIRECT < 0.2 mg/dL (0.0-0.3)
[2017-09-10] MEDS: HEPARIN NA (PORCINE) 5,000 UNITS/ML 1ML VIAL SQ SCH (09:33)
--- NOTE | 2017-09-10 09:47 | PN ---
Physical Exam: SUBJECTIVE: Patient seen and examined, tolerating regular diabetic diet. OBJECTIVE: Patient is 27 y/o male with no significant past Vital Signs Period Temp Pulse Resp BP Sys/Chase Pulse Ox Last 24 Hr 98 F-98.0 F 63-71 18-20 105-140/55-80 96-99 GENERAL: The patient is awake, alert, and fully oriented, in no acute distress. HEAD: Normal with no signs of trauma. EYES: PERRL, extraocular movements intact, sclera anicteric, conjunctiva clear. No ptosis. ENT: Ears normal, nares patent, oropharynx clear without exudates, moist mucous membranes. NECK: Trachea midline, full range of motion, supple. LUNGS: Breath sounds equal, clear to auscultation bilaterally, no wheezes, no crackles, no accessory muscle use. HEART: Regular rate and rhythm, S1, S2 without murmur, rub or gallop. ABDOMEN: Soft, nontender, nondistended, normoactive bowel sounds, no guarding, no rebound, no hepatosplenomegaly, no masses. EXTREMITIES: 2+ pulses, warm, well-perfused, no edema. NEUROLOGICAL: Cranial nerves II through XII grossly intact. Normal speech, gait not observed. PSYCH: Normal mood, normal affect. SKIN: Warm, dry, normal turgor, no rashes or lesions noted Laboratory Results - last 24 hr CBC WBC 5.2 K/mm3 (4.0-10.8) 09/09/17 07:20 RBC 5.17 M/mm3 (4.00-5.60) D 09/09/17 07:20 Hgb 14.7 GM/dl (11.7-16.9) D 09/09/17 07:20 Hct 45.0 % (35.4-49) D 09/09/17 07:20 MCV 87.1 fl (80-96) 09/09/17 07:20 MCH 28.5 pg (25.7-33.7) 09/09/17 07:20 MCHC 32.8 g/dl (32.0-35.9) 09/09/17 07:20 RDW 12.6 % (11.9-15.9) 09/09/17 07:20 Plt Count 196 K/MM3 (134-434) D 09/09/17 07:20 MPV 10.6 fl (7.5-11.1) 09/09/17 07:20 Neutrophils % 53.7 % (42.8-82.8) D 09/09/17 07:20 Lymphocytes % 37.1 % (8-40) D 09/09/17 07:20 Monocytes % 7.2 % (3.8-10.2) 09/09/17 07:20 Eosinophils % 1.5 % (0-4.5) 09/09/17 07:20 Basophils % 0.5 % (0-2.0) 09/09/17 07:20 09/09/17 09/10/17 09/10/17 21:15 06:18 07:40 WBC RBC Hgb Hct MCV MCH MCHC RDW Plt Count MPV Neutrophils % Lymphocytes % Monocytes % Eosinophils % Basophils % PT with INR INR POC Glucometer 360 278 Total Bilirubin 1.4 H Direct Bilirubin < 0.2 AST 246 H D ALT 203 H D Alkaline Phosphatase 86 Total Protein 7.6 Albumin 3.9 Lipase Hepatitis A Ab Total Hep Bs Antigen Hep Bs Antibody Hep B Core Total Ab Hepatitis C Antibody Laboratory Tests 09/07/17 09/09/17 18:55 07:20 Hepatitis A Ab Total Negative Hep Bs Antigen Negative Hep Bs Antibody Non reactive Hep B Core Total Ab Negative Hepatitis C Antibody 0.1 HIV 1&2 Antibody Screen Negative HIV P24 Antigen Negative Laboratory Tests 09/09/17 09/09/17 09/09/17 06:12 12:02 16:22 POC Glucometer 307 292 252 09/09/17 09/10/17 21:15 06:18 POC Glucometer 360 278 Active Medications Generic Name Dose Route Start Last Admin Trade Name Freq PRN Reason Stop Dose Admin Fenofibric Acid 135 mg 09/10/17 10:00 Trilipix - PO DAILY SHERRY Insulin Aspart 1 vial 09/10/17 10:00 Novolog Vial Sliding Scale - SQ Q4H [facility] Protocol Insulin Detemir 27 units 09/10/17 07:00 09/10/17 06:28 Levemir Vial SQ 27 units BID@0700,2200 SHERRY Administration IMAGING ultrasound of abdomen: hepatic steatosis, slightly overly distended gallbladder without stones ASSESSMENT/PLAN: 1) endo IDDM - fingersticks remain elevated, levermir increased to 27 units BID, discussed with Dr Bennett (endocrine) advised novolog 70/30-->25units breakfast, lunch 10units, dinner 35units, continue regular insulin sliding scale achs - hgb a1c, 11.2, pt will require home insulin - endocrine consulted and following 2) GI transanimitis -elevate ast/alt, hepatitis panel negative, metformin discontinued, fenofibrate added due to triglyceremia - dietary consult ordered - GI, Dr Bowers consulted and following DVT prophylaxis: subq heparin, oob, ambulation Dispo: Pt requires inpatient admission Visit type - Emergency Visit Emergency Visit: Yes ED Registration Date: 09/09/17 Care time: The patient presented to the Emergency Department on the above date and was hospitalized for further evaluation of their emergent condition. - New Patient This patient is new to me today: No - Critical Care Critical Care patient: No - Discharge Referral Referred to [facility] Med [facility] No
[2017-09-10] MEDS ORDERED: INSULIN SLIDING SCALE (NOVOLOG) 1 VIAL SQ SCH (10:00)
[2017-09-10] MEDS ORDERED: INSULIN (NOVOLOG MIX 70/30) 100 UNITS/ML MDV SQ SCH ×2 (11:00→16:30)
[2017-09-10 11:10] LABS: ANION GAP 12 (8-16); BLOOD UREA NITROGEN 8 mg/dl (7-18); CALCIUM 9.8 mg/dl (8.4-10.2); CHLORIDE 100 mmol/L (98-107); CO2 21 mmol/L (22-28); CREATININE 0.8 mg/dl (0.6-1.3); GLUCOSE,RANDOM 282 mg/dl (74-106); POTASSIUM 4.2 mmol/L (3.5-5.1); SODIUM 133 mmol/L (136-145)
[2017-09-10] MEDS: FENOFIBRIC ACID 135 MG CAP PO SCH (11:39)
[2017-09-10] MEDS: INSULIN (NOVOLOG MIX 70/30) 100 UNITS/ML MDV SQ SCH (11:39)
[2017-09-10] MEDS ORDERED: MAGNESIUM SULFATE 2 GM in SODIUM CHLORIDE 100 ML IVPB ONE (12:11)
[2017-09-10] MEDS ORDERED: INSULIN (NOVOLOG) ASPART 100 UNITS/ML 10ML VIAL ONE ×2 (12:13→16:57)
[2017-09-10] MEDS ORDERED: MAGNESIUM SULF 50% (8.12 MEQ/2 ML-1 GM VIAL) IVPB ONE (13:00)
[2017-09-10 16:02] LABS: CHOLESTEROL 232 mg/dl; HDL CHOLESTEROL 32 mg/dl (29-89); TRIGLYCERIDES 862 mg/dl (35-160)
--- NOTE | 2017-09-11 02:58 | PN ---
Progress Note (short form) - Note Progress Note: diabetic control taking into account weight and height insulin doses may need titration as outpatient, morbid obesity high dose mix insulin regimen required hepatic steatosis (fatty liver ) Abnormal Lab Results 09/10/17 09/10/17 09/10/17 07:00 07:40 07:45 Sodium 133 L Carbon Dioxide 21 L Random Glucose 282 H Magnesium 1.5 L Total Bilirubin 1.4 H AST 246 H D ALT 203 H D Triglycerides 862 H Laboratory Results - last 24 hr 09/07/17 09/09/17 09/10/17 21:59 07:20 06:18 Sodium Potassium Chloride Carbon Dioxide Anion Gap BUN Creatinine POC Glucometer [phone] Random Glucose Calcium Magnesium Total Bilirubin Direct Bilirubin AST ALT Alkaline Phosphatase Total Protein Albumin Triglycerides Cholesterol HDL Cholesterol Hepatitis A Ab Total Negative Hep Bs Antigen Negative Hep Bs Antibody Non reactive Hep B Core Total Ab Negative Hepatitis C Antibody 0.1 09/10/17 09/10/17 09/10/17 07:00 07:40 07:45 Sodium 133 L Potassium 4.2 Chloride 100 Carbon Dioxide 21 L Anion Gap 12 BUN 8 D Creatinine 0.8 POC Glucometer Random Glucose 282 H Calcium 9.8 Magnesium 1.5 L Total Bilirubin 1.4 H Direct Bilirubin < 0.2 AST 246 H D ALT 203 H D Alkaline Phosphatase 86 Total Protein 7.6 Albumin 3.9 Triglycerides 862 H Cholesterol 232 HDL Cholesterol 32 Hepatitis A Ab Total Hep Bs Antigen Hep Bs Antibody Hep B Core Total Ab Hepatitis C Antibody 09/10/17 09/10/17 09/10/17 12:10 16:50 21:42 Sodium Potassium Chloride Carbon Dioxide Anion Gap BUN Creatinine POC Glucometer 230 231 194 Random Glucose Calcium Magnesium Total Bilirubin Direct Bilirubin AST ALT Alkaline Phosphatase Total Protein Albumin Triglycerides Cholesterol HDL Cholesterol Hepatitis A Ab Total Hep Bs Antigen Hep Bs Antibody Hep B Core Total Ab Hepatitis C Antibody plan novolog 70/30: 25units am 10 units lunch 35 units ac dinner may dc to follow as outpatien nutrition eval Problem List - Problems (1) Diabetes mellitus, new onset Code(s): E11.9 - TYPE 2 DIABETES MELLITUS WITHOUT COMPLICATIONS (2) Hyperglycemia Code(s): R73.9 - HYPERGLYCEMIA, UNSPECIFIED
[2017-09-11] MEDS: INSULIN SLIDING SCALE (NOVOLOG) 1 VIAL SQ SCH ×2 (06:22→11:55)
[2017-09-11] MEDS ORDERED: INSULIN (NOVOLOG MIX 70/30) 100 UNITS/ML MDV SQ SCH (07:00)
[2017-09-11 08:10] LABS: BASO % 0.4 % (0-2.0); MEAN CELL VOLUME 86.9 fl (80-96); MONO % 7.9 % (3.8-10.2); RDW 12.5 % (11.9-15.9); WHITE BLOOD COUNT 5.1 K/mm3 (4.0-10.8)
[2017-09-11 08:13] LABS: HEMATOCRIT 48.5 % (35.4-49); HEMOGLOBIN 15.9 GM/dl (11.7-16.9); LYMPH % 35.1 % (8-40); MCH 28.6 pg (25.7-33.7); MCHC 32.9 g/dl (32.0-35.9); MEAN PLT VOLUME 9.9 fl (7.5-11.1); NEUT % 54.6 % (42.8-82.8); PLATELET COUNT 214 K/MM3 (134-434); RBC 5.58 M/mm3 (4.00-5.60)
[2017-09-11 08:33] LABS: ALBUMIN 3.6 g/dl (3.5-5.0); ALK PHOS 75 U/L (32-92); ANION GAP 9 (8-16); BILIRUBIN,TOTAL 1.3 mg/dl (0.2-1.0); BLOOD UREA NITROGEN 9 mg/dl (7-18); CALCIUM 9.4 mg/dl (8.4-10.2); CHLORIDE 100 mmol/L (98-107); CO2 22 mmol/L (22-28); CREATININE 0.9 mg/dl (0.6-1.3); GLUCOSE,RANDOM 267 mg/dl (74-106); MAGNESIUM 1.6 mg/dL (1.8-2.4); PHOSPHOROUS 3.9 mg/dl (2.5-4.6); POTASSIUM 3.9 mmol/L (3.5-5.1); SGOT/AST 217 U/L (10-42); SGPT/ALT 200 U/L (10-40); SODIUM 131 mmol/L (136-145)
[2017-09-11] MEDS ORDERED: MAGNESIUM SULFATE 2 GM in SODIUM CHLORIDE 100 ML IVPB ONE (09:10)
[2017-09-11] MEDS ORDERED: MAGNESIUM SULF 50% (8.12 MEQ/2 ML-1 GM VIAL) IVPB ONE (09:30)
[2017-09-11 09:40] VITALS: BP 134/82; PULSE 72; TEMP 97.8
[2017-09-11] MEDS: FENOFIBRIC ACID 135 MG CAP PO SCH (09:42)
--- NOTE | 2017-09-11 10:18 | DS ---
Physical Exam: SUBJECTIVE: Patient seen and examined, reports feeling well, tolerating diabetic diet, ready for discharge home. OBJECTIVE:This is a 27 year old male with no past medical history who presented with urinary frequency and decreased appetite x 2 weeks. He states that his grandmother periodically checks his sugar and it has been fine but she has not checked it during this illness. In the ED he was noted to have elevated sugar on meter; labs revealed glucose 706. Pt reports slow steady weight loss over past 11 months, weighed 376 last October ER course was notable for: (1) Glucose 706, given 16u novolog and started on drip (2) Potasium initially 4.4 (3) Sodium 125, corrects to 135 to 140 Vital Signs Period Temp Pulse Resp BP Sys/Chase Pulse Ox Last 24 Hr 97.4 F-98.0 F 64-72 18-20 122-138/73-82 93-100 PHYSICAL EXAM GENERAL: The patient is awake, alert, and fully oriented, in no acute distress. HEAD: Normal with no signs of trauma. EYES: PERRL, extraocular movements intact, sclera anicteric, conjunctiva clear. No ptosis. ENT: Ears normal, nares patent, oropharynx clear without exudates, moist mucous membranes. NECK: Trachea midline, full range of motion, supple. LUNGS: Breath sounds equal, clear to auscultation bilaterally, no wheezes, no crackles, no accessory muscle use. HEART: Regular rate and rhythm, S1, S2 without murmur, rub or gallop. ABDOMEN: Soft, nontender, nondistended, normoactive bowel sounds, no guarding, no rebound, no hepatosplenomegaly, no masses. EXTREMITIES: 2+ pulses, warm, well-perfused, no edema. NEUROLOGICAL: Cranial nerves II through XII grossly intact. Normal speech, gait not observed. PSYCH: Normal mood, normal affect. SKIN: Warm, dry, normal turgor, no rashes or lesions noted LABS Laboratory Results - last 24 hr 09/07/17 09/10/17 09/10/17 21:59 07:00 07:45 WBC RBC Hgb Hct MCV MCH MCHC RDW Plt Count MPV Neutrophils % Lymphocytes % Monocytes % Eosinophils % Basophils % Sodium 133 L Potassium 4.2 Chloride 100 Carbon Dioxide 21 L Anion Gap 12 BUN 8 D Creatinine 0.8 Creat Clearance w eGFR POC Glucometer [phone] Random Glucose 282 H Calcium 9.8 Phosphorus Magnesium 1.5 L Total Bilirubin AST ALT Alkaline Phosphatase Total Protein Albumin Triglycerides 862 H Cholesterol 232 HDL Cholesterol 32 09/10/17 09/10/17 09/10/17 12:10 16:50 21:42 WBC RBC Hgb Hct MCV MCH MCHC RDW Plt Count MPV Neutrophils % Lymphocytes % Monocytes % Eosinophils % Basophils % Sodium Potassium Chloride Carbon Dioxide Anion Gap BUN Creatinine Creat Clearance w eGFR POC Glucometer 230 231 194 Random Glucose Calcium Phosphorus Magnesium Total Bilirubin AST ALT Alkaline Phosphatase Total Protein Albumin Triglycerides Cholesterol HDL Cholesterol 09/11/17 09/11/17 09/11/17 06:15 07:00 07:00 WBC 5.1 RBC 5.58 Hgb 15.9 Hct 48.5 MCV 86.9 MCH 28.6 MCHC 32.9 RDW 12.5 Plt Count 214 MPV 9.9 Neutrophils % 54.6 Lymphocytes % 35.1 Monocytes % 7.9 Eosinophils % 2.0 Basophils % 0.4 Sodium 131 L Potassium 3.9 Chloride 100 Carbon Dioxide 22 Anion Gap 9 BUN 9 Creatinine 0.9 Creat Clearance w eGFR > 60 POC Glucometer 248 Random Glucose 267 H Calcium 9.4 Phosphorus 3.9 D Magnesium 1.6 L Total Bilirubin 1.3 H AST 217 H ALT 200 H Alkaline Phosphatase 75 Total Protein 7.0 Albumin 3.6 Triglycerides Cholesterol HDL Cholesterol Microbiology 09/07/17 18:30 Urine - Urine Clean Catch Urine Culture - Final NO GROWTH OBTAINED IMAGING ultrasound of abdomen: hepatic steatosis, slightly overly distended gallbladder without stones HOSPITAL COURSE: Patient was admitted from the emergency department for new onset, IDDM. Patient was initially started on an insulin gtt, which was discontinued on hospital Day 1, patient was placed on levermir 27 units BID, and novolog 70/30- ->25units breakfast, lunch 10units, dinner 35units, with regular insulin sliding scale achs, upon the recommendation of endocrine, Dr Bennett. Starr dairy science teacher consulted and teaching was provided. Patient was noted to have tranimitis, secondary to fatty liver, benign abdominal exam. hepatitis panel negative, metformin fenofibrate added due to triglyceremia, GI Dr Bowers consulted and followed Date of Admission:09/09/17 Date of Discharge: 09/11/17 Minutes to complete discharge: 45 Discharge Summary Reason For Visit: ONSET OF DIABETES Current Active Problems Diabetes mellitus, new onset (Acute) Hyperglycemia (Acute) Condition: Improved - Instructions Diet, Activity, Other Instructions: you were admitted to the hospital for elevated blood sugars you are being prescribed 2 different types of insulin: - Novolog 70/30 to be injected before meals - breakfast 25 units - lunch 10 units - dinner 35 units - regular insulin sliding scale to be injected before meals and bedtime according to your fingersticks finger stick sliding scale 101-150--> 0units 151-200--> 4units 201-250-->6 units 251-300-->8 units 301-350-->10 units 351-400-->12 units greater than 400 -->12 units and call MD please take your fingersticks before meals and at bedtime and keep a log please follow up with your primary care physician and agriculture manager within 1 week if any new or persistent symptoms develop please return to the emergency department Referrals: Erika Riley MD [Staff Physician] - 1 Week Dre Figueroa MD [Staff Physician] - 1 Week Disposition: HOME - Home Medications Comprehensive Discharge Medication List: Ambulatory Orders NK [No Known Home Medication] 09/07/17 This patient is new to me today: No Emergency Visit: Yes ED Registration Date: 09/09/17 Care time: The patient presented to the Emergency Department on the above date and was hospitalized for further evaluation of their emergent condition. Critical Care patient: No - Discharge Referral Referred to [facility] Yes Physician Referral: Erika Riley MD ([facility])
[2017-09-11] MEDS: INSULIN (NOVOLOG MIX 70/30) 100 UNITS/ML MDV SQ SCH (11:55)
[2017-09-11] MEDS ORDERED: PT OWN MED DRAWER 7, Y5N ONE (12:47)
== END 2017-09-11 13:25 | disposition home or self-care (01) | DRG 420 ==
LOC: FER 18:07 → FM/S 21:48 → OBSVTOIN 09-09 12:31
PROVIDERS: ADMIT Internal Medicine; ATTEND Nurse Practitioner Family
DX: E11.65 Type 2 diabetes mellitus with hyperglycemia (principal); E66.01 Morbid (severe) obesity due to excess calories; Z68.41 Body mass index [BMI] 40.0-44.9, adult; K76.0 Fatty (change of) liver, not elsewhere classified; E86.0 Dehydration; Z79.84 Long term (current) use of oral hypoglycemic drugs
CPT/HCPCS: 36415; 76705-TC; 80048; 80053; 80061; 80076; 81003; 81015; 82009; 83036; 83605; 83690; 83721; 83735; 84100; 85025; 85610; 86341; 86704; 86706; 86708; 86803; 87086; 87340; 87389; 99285-25; G0378; J1644